=== PATIENT | male | born 1980 | race Caucasian/White ===

== ENCOUNTER 2020-09-08 23:23 | Emergency (ER) | payer OTHER ==
[~2020-09-08] VITALS: Ht 185.4 cm; Wt 123.5 kg
[2020-09-08 23:24] VITALS: BP 176/111
[2020-09-08] MEDS ORDERED: NORT50CA (23:42)
[2020-09-08] MEDS ORDERED: GABA-1171 (23:42)
[2020-09-08] MEDS ORDERED: OMEP-218 (23:42)
== END 2020-09-09 01:35 | disposition left against medical advice (07) ==
LOC: M ED 23:23
DX: Z53.21 Procedure and treatment not carried out due to patient leaving prior to being seen by health care provider (principal)